=== PATIENT | male | born 1935 | race Caucasian/White ===

== ENCOUNTER → 2018-11-04 | Outpatient (CLI) | payer OTHER ==
[2018-11-04] VITALS (8 sets, daily range): BP systolic 109–134; BP diastolic 63–93
[~2018-11-04] VITALS: Ht 188 cm; Wt 95.3 kg
[~2018-11-04] MED LIST: AMLODIPINE BESY10 MG PO; BACTRIM DS TAB1 EACH PO; ELIQUIS5 MG PO; FLOMAX0.4 MG PO; OCUVITE TABLET1 EAC1 PO; REMERON15 MG PO; TOPROL XL25 MG PO; WELLBUTRIN SR100 MG PO; ZYLOPRIM300 MG PO
[2018-11-04 09:53] LABS: HEMOGLOBIN 14.4 gm/dL (14.0-18.0); MCH 30.8 pg (26.0-34.0); MCHC 33.6 g/dL (28.0-37.0); MCV 91.7 fL (80.0-100.0); MPV 7.5 fl. (7.2-11.1); RBC 4.69 mil/uL (4.50-6.00); RDW-CV 14.6 % (10.5-14.5); WBC 6.2 thou/uL (4.0-11.0)
[2018-11-04 10:04] LABS: APTT 28.7 Seconds (25.0-31.3); INR 1.1; PROTIME 10.9 Seconds (9.20-11.50)
== END | disposition home or self-care (01) ==
LOC: M.ULTRA 08:59
PROVIDERS: Radiology Diagnostic Radiology
DX: C61 Malignant neoplasm of prostate (principal); I10 Essential (primary) hypertension; Z98.890 Other specified postprocedural states; Z79.899 Other long term (current) drug therapy; Z79.01 Long term (current) use of anticoagulants